=== PATIENT | female | born 1990 | race Caucasian/White ===

== ENCOUNTER → 2017-12-01 07:35 | Outpatient (CLI) | payer OTHER, SELFPAY ==
[2017-12-01 11:05] LABS: Free Thyroxine Index 2.7 ug/dL (5.93-13.13); T4 (Thyroxine) 6.9 ug/dl (4.7-13.3); Thyroid Stimulating Hormone 5.68 uIU/ml (0.358-3.740); Triiodothryronine (T3) Uptake 39 % (31-39)
== END ==
PROVIDERS: Visit Provider Internal Medicine Adolescent Medicine
DX: R94.6 Abnormal results of thyroid function studies (principal)
CPT/HCPCS: 36415; 84436; 84443; 84479

== ENCOUNTER → 2018-01-25 07:18 | Outpatient (CLI) | payer OTHER, SELFPAY ==
[2018-01-25 09:52] LABS: Free Thyroxine Index 2.2 ug/dL (5.93-13.13); T4 (Thyroxine) 5.5 ug/dl (4.7-13.3); Thyroid Stimulating Hormone 3.42 uIU/ml (0.358-3.740); Triiodothryronine (T3) Uptake 40 % (31-39)
== END ==
PROVIDERS: Visit Provider Internal Medicine Adolescent Medicine
DX: R94.6 Abnormal results of thyroid function studies (principal)
CPT/HCPCS: 36415; 84436; 84443; 84479

== ENCOUNTER → 2020-01-28 10:29 | Outpatient (CLI) | payer OTHER, SELFPAY ==
[2020-01-28 12:30] LABS: Thyroid Stimulating Hormone 2.41 uIU/mL (0.465-4.68)
[2020-01-29 08:48] LABS: Progesterone 16.5 ng/mL (.)
== END ==
PROVIDERS: Visit Provider Obstetrics & Gynecology
DX: N94.6 Dysmenorrhea, unspecified (principal); Z31.69 Encounter for other general counseling and advice on procreation
CPT/HCPCS: 36415; 84144; 84443

== ENCOUNTER → 2020-03-15 16:11 | Outpatient (CLI) | payer OTHER, SELFPAY ==
[2020-03-15 16:51] LABS: Coronavirus 19 IgG Antibody Negative (Negative); Coronavirus 19 IgM Antibody Negative (Negative)
== END ==
PROVIDERS: Visit Provider Internal Medicine
DX: Z03.818 Encounter for observation for suspected exposure to other biological agents ruled out (principal)
CPT/HCPCS: 86328